=== PATIENT | female | born 1975 | race Caucasian/White ===

== ENCOUNTER 2017-10-06 18:40 | Emergency (ER) | payer SELFPAY ==
--- NOTE | 2017-10-06 18:42 | ER Report ---
History and Physical Time Seen By MD: 18:42 HPI/ROS CHIEF COMPLAINT: Seizure HISTORY OF PRESENT ILLNESS: 42-year-old female with a long history of seizures since age 7. She's been having breakthrough seizures for the last 3 days. She's had 13 seizures in the last 3 days.. She is normally on anticonvulsant medication. She states she is compliant. 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 She states that she is running low on some of her medications. He states that she has more seizures when she has stress. Patient states she has 2 kinds of seizures, grand mal and absence Seizures. Patient denies drugs or alcohol use. Patient states compliance on her medications. REVIEW OF SYSTEMS: Respiratory: No cough, no dyspnea. Cardiovascular: No chest pain, no palpitations. Gastrointestinal: No vomiting, no abdominal pain. Musculoskeletal: No back pain. Allergies: Coded Allergies: NSAIDS (Non-Steroidal Anti-Inflamma (Verified Allergy, Unknown, 10/06/17) have bleeding ulcers quetiapine (Verified Allergy, Unknown, 10/06/17) sleep walking risperidone (Verified Allergy, Unknown, 10/06/17) dystonia state tramadol (Verified Allergy, Unknown, 10/06/17) makes seizures worst Home Meds Active Scripts Hydrocodone Bit/Acetaminophen (NORCO 5-325 TABLET) 1 Each Tablet, 1 EACH PO Q4H PRN for PAIN, #8 TAB Prov:GAUDENCIO MORENO DO 10/06/17 Diazepam (VALIUM) 5 Mg Tablet, 5 MG PO TID PRN for breakthrough seizure, #15 TAB Prov:GAUDENCIO MORENO DO 10/06/17 Reported Medications Clonazepam (KLONOPIN) 1 Mg Tablet, 1 MG PO QID, #7 TAB 10/06/17 Phenobarbital (PHENOBARBITAL) 32.4 Mg Tablet, 32.4 MG PO TID 10/06/17 Levetiracetam (KEPPRA) 500 Mg Tablet, 500 MG PO BID, TAB 10/06/17 Past Medical/Surgical History Seizure disorder since childhood Reviewed Nurses Notes: Yes Old Medical Records Reviewed: Yes Constitutional Vital Sign - Last 24 Hours 10/06/17 10/06/17 10/06/17 10/06/17 18:47 18:47 19:10 19:30 Temp 97.9 Pulse 114 116 111 Resp 18 18 B/P (MAP) 137/103 (114) 137/103 128/95 (106) Pulse Ox 95 93 10/06/17 10/06/17 10/06/17 10/06/17 19:37 19:40 20:03 20:15 Pulse 105 105 B/P (MAP) 132/87 (102) 117/85 (96) Pulse Ox 93 90 O2 Delivery Room Air 10/06/17 20:30 Pulse 101 B/P (MAP) 109/98 (102) Pulse Ox 95 O2 Delivery Room Air Physical Exam General Appearance: The patient is alert, has no immediate need for airway protection and no current signs of toxicity. Alert and oriented 3, agitated and anxious. HEENT: Pupils equal and round no injection. Oropharynx without evidence of tongue bite orona or trauma, no erythema or exudate Respiratory: Chest is non tender, lungs are clear to auscultation. Cardiac: regular rate and rhythm Gastrointestinal: Abdomen is soft and non tender, no masses, bowel sounds normal. Musculoskeletal: Neck: Neck is supple and non tender. No tenderness in the midline Extremities have full range of motion and are non tender. There is tenderness of the right shoulder, there is tenderness of the right hip. Both extremities a re neurovascularly intact and demonstrate near full range of motion Skin: No rashes or lesions. 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 Medical Decision Making Data Points Laboratory Hematology Test 10/06/17 17:34 Urine Opiates Screen Positive Urine Barbiturates Screen Positive Ur Tricyclic Antidepressants Screen Negative Urine Phencyclidine Screen Negative Urine Amphetamines Screen Positive Urine Benzodiazepines Screen Negative Urine Cocaine Screen Negative Urine Cannabinoids Screen Negative Chemistry Test 10/06/17 17:34 Urine Opiates Screen Positive Urine Barbiturates Screen Positive Ur Tricyclic Antidepressants Screen Negative Urine Phencyclidine Screen Negative Urine Amphetamines Screen Positive Urine Benzodiazepines Screen Negative Urine Cocaine Screen Negative Urine Cannabinoids Screen Negative Toxicology Test 10/06/17 17:34 Urine Opiates Screen Positive Urine Barbiturates Screen Positive Ur Tricyclic Antidepressants Screen Negative Urine Phencyclidine Screen Negative Urine Amphetamines Screen Positive Urine Benzodiazepines Screen Negative Urine Cocaine Screen Negative Urine Cannabinoids Screen Negative EKG/Imaging Imaging Results: CT scan of the head was obtained. The results of the study are no acute findings. The study was read by the radiologist. I viewed the images myself on the PACS system. ED Course/Re-evaluation Clinical Indication for ER IV: IV Access ED Course Patient was admitted to an examination room. H&P was done. The differential diagnosis was considered. On clinical examination. Patient's alert and oriented 3. She has a nonfocal neurologic examination. She's claiming that she's had multiple seizures over the last 2 days. Had no incontinence. Patient reports to us that she's had 3 seizures while present here in the emergency department. Nursing staff was present for at least one of these. They performed the arm drop test, which missed her face. He'll reflexes were intact at that time as well. 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 I suspect her behavior is suspect for drug-seeking behavior. Patient refused to have diagnostic blood studies performed. She did give us a urine which had a urine tox screen performed which showed amphetamines, opiates and barbiturates. After peripheral IV was established and blood was drawn. Patient became quite angry and agitated with the 1st nursing personnel. That was with her. A 2nd nurse took over care. Came upset with that and are as well. Diagnostic x-rays were performed of her hip and shoulder which were unremarkable. She was given Ativan 1 mg IV for her agitation and anxiety. I had a prolonged talk with the patient and her . Advised her to follow-up with her primary care physician upon returning home. Patient was given a prescription for Valium 5 mg. Patient was requesting something for pain relief as well. She is allergic to NSAIDs and tramadol. She was given a prescription for 8 [place]. She went on further requesting Soma for muscle relaxation of her leg. I declined to fill that prescription and said she should follow-up with her primary care physician for her medication needs. She states she's moving and has no primary care physician follow-up with. Decision to Disposition Date: Oct 06, 2017 Decision to Disposition Time: 19:46 Depart Departure Latest Vital Signs Vital Signs Date Time Temp Pulse Resp B/P (MAP) Pulse Ox O2 Delivery O2 Flow Rate FiO2 10/06/17 20:30 101 109/98 (102) 95 Room Air 10/06/17 19:10 18 10/06/17 18:47 97.9 Impression: Primary Impression: Seizure Additional Impressions: Seizure disorder Contusion of hip, right Contusion of right shoulder Amphetamine abuse Condition: Improved Disposition: HOME OR SELF-CARE New Scripts Hydrocodone Bit/Acetaminophen (NORCO 5-325 TABLET) 1 Each Tablet 1 EACH PO Q4H PRN for PAIN, #8 TAB Prov: GAUDENCIO MORENO DO 10/06/17 Diazepam (VALIUM) 5 Mg Tablet 5 MG PO TID PRN for breakthrough seizure, #15 TAB Prov: GAUDENCIO MORENO DO 10/06/17 Patient Instructions: Recurrent Seizures in Adults (ED) Additional Instructions: Follow-up with your primary care doctor upon returning home Problem Qualifiers Additional Impressions: Contusion of hip, right Encounter type: initial encounter Qualified Codes: S70.01XA - Contusion of right hip, initial encounter Contusion of right shoulder Encounter type: initial encounter Qualified Codes: S40.011A - Contusion of right shoulder, initial encounter GAUDENCIO MORENO DO Oct 06, 2017 18:42
[2017-10-06] MEDS ORDERED: LORazepam 2 MG/ML VIAL IVP ONE (19:00)
[2017-10-06] MEDS ORDERED: PHEN32.417 PO (19:39)
[2017-10-06] MEDS ORDERED: CLON-1 PO (19:39)
[2017-10-06] MEDS ORDERED: LEVE-14 PO (19:39)
[2017-10-06] MEDS ORDERED: DIA5 PO (19:50)
--- NOTE | 2017-10-06 20:27 | RADIOLOGY IMAGING REPORT ---
FACILITY: [facility] - [place] PATIENT NAME: Clarita Shaikh : 1975 MR: [id number] V: [id number] EXAM DATE: ORDERING PHYSICIAN: GAUDENCIO MORENO TECHNOLOGIST: Location: [facility] [place] Patient: Clarita Shaikh : 1975 Visit/Account:[id number] Date of Sevice: 10/06/2017 CT OF THE BRAIN WITHOUT CONTRAST HISTORY: Seizure PROCEDURE: 3.0 mm contiguous axial sections were performed through the brain. Sagittal and coronal r eformats were submitted. COMPARISON: FINDINGS: BRAIN: Brain and intracranial structures: There is no mass lesion, hemorrhage or acute infarct. Orbits (included portions): Normal. Scalp: Normal. Skull: Normal. Paranasal sinuses and mastoid air cells (included portions): A few right mastoid air cells are nonspe cifically opacified. IMPRESSION: No evidence of acute intracranial abnormality by CT. One of the following dose optimization techniques was utilized in the performance of this exam: Autom ated exposure control; adjustment of the mA and/or kV according to the patient's size; or use of an i terative reconstruction technique. Specific details can be referenced in the facility's radiology C T exam operational policy. Report Dictated By: Trey Guido MD at 10/06/2017 8:19 PM Report E-Signed By: Trey Guido MD at 10/06/2017 8:24 PM WSN:[id number]
[2017-10-06 20:30] VITALS: BP 109/98
--- NOTE | 2017-10-06 20:30 | RADIOLOGY IMAGING REPORT ---
FACILITY: [facility] - [place] PATIENT NAME: Clarita Shaikh : 1975 MR: [id number] V: [id number] EXAM DATE: ORDERING PHYSICIAN: GAUDENCIO MORENO TECHNOLOGIST: Location: [facility] - [place] Patient: Clarita Shaikh : 1975 Visit/Account:[id number] Date of Sevice: 10/06/2017 Technique: SHOULDER MIN 2 VIEWS RIGHT HISTORY: Seizure, fall Comparison studies: None FINDINGS: There is no acute fracture. The alignment of the right shoulder is maintained. Soft tissues are unremarkable. IMPRESSION: 1. No acute osseous process. Normal anatomic alignment. Report Dictated By: Jay Funes DO at 10/06/2017 8:25 PM Report E-Signed By: Jay Funes DO at 10/06/2017 8:27 PM WSN:[id number]
--- NOTE | 2017-10-06 20:32 | RADIOLOGY IMAGING REPORT ---
FACILITY: [facility] - [place] PATIENT NAME: Clarita Shaikh : 1975 MR: [id number] V: [id number] EXAM DATE: ORDERING PHYSICIAN: GAUDENCIO MORENO TECHNOLOGIST: Location: [facility] - [place] Patient: Clarita Shaikh : 1975 Visit/Account:[id number] Date of Sevice: 10/06/2017 Technique: HIP RIGHT HISTORY: fall SZ Comparison studies: None FINDINGS: There is no acute fracture. The alignment of the right hip is maintained. Postoperative kumar nges are noted within the pelvis. IMPRESSION: 1. No acute osseous process. Normal anatomic alignment of the right hip. Report Dictated By: Jay Funes DO at 10/06/2017 8:27 PM Report E-Signed By: Jay Funes DO at 10/06/2017 8:29 PM WSN:[id number]
[2017-10-06] MEDS ORDERED: HYDR-4309 PO (20:39)
== END 2017-10-06 21:02 | disposition home or self-care (01) ==
LOC: ER 19:14
DX: G40.909 Epilepsy, unspecified, not intractable, without status epilepticus (principal); S70.01XA Contusion of right hip, initial encounter; S40.011A Contusion of right shoulder, initial encounter; F15.10 Other stimulant abuse, uncomplicated
CPT/HCPCS: 70450; 73030; 73502; 80305; 96374; 99284; J2060